=== PATIENT | female | born 1980 | race Caucasian/White ===

== ENCOUNTER 2025-08-18 21:53 | Observation (INO) ==
--- NOTE | 2025-08-18 22:01 | Emergency Department Note ---
Impression & Plan Kidney stone Admission ED Provider Note HPI: History obtained from patient. The patient is a 45-year-old female who presents the emergency department with chief complaint of right flank pain from a kidney stone. Patient states she was at the [facility] ER last night and was diagnosed with a kidney stone. She states she has had pain in the right flank. Patient states she was told the kidney stone was 5 mm but she is unsure of the location of the stone. Patient states that today she had some worsening pain as well as nausea and therefore came to this ER to be assessed. On arrival here to the ED the patient is hemodynamically stable, she otherwise appears to be in no acute distress. ROS: - Per HPI Differential Diagnosis: Kidney stone, pyelonephritis, urinary tract infection, sepsis, amongst other potential pathologies. *Outpatient medications and allergy history reviewed. PE: General: Alert HEENT: Normocephalic, trachea midline Eyes: Extraocular eye movement is intact, no scleral erythema Pulmonary: Clear to auscultation bilaterally, no wheezing Cardio: Regular rate and rhythm GI: Abdomen is soft to palpation : No suprapubic tenderness, mild right flank tenderness to palpation MSK: No evidence of trauma or malformation of the extremities, no edema Skin: No evidence of rash Neuro: Alert, no focal deficits Psychiatric: Cooperative INDEPENDENT INTERPRETATIONS: case monitor: (As interpreted by myself): - An order was placed for continuous cardiac monitoring - Patient was noted to be in sinus rhythm with a rate of 80 Interventions provided in ED: - IV morphine, IV Zofran, IV Toradol, IV ceftriaxone, IV fluid bolus Medical Decision Making: IV was established and lab work obtained, patient was placed on engine monitor. Lab work shows a leukocytosis of 17.74, hemoglobin is normal, platelet count is normal, CMP shows a mild elevation in the patient's creatinine to 1.24, otherwise no critical findings are noted. Urinalysis shows evidence of contamination with greater than 20 epithelial cells, 1+ leukocyte esterase and urine nitrate positive, will send for culture. Given that the patient also has a leukocytosis blood cultures were ordered and the patient was given a dose of IV ceftriaxone. CT imaging of the abdomen pelvis was obtained, there is evidence of an obstruction at the right ureterovesicular junction with resulting hydroureteronephrosis. Patient required multiple doses of pain medicine here in the ED, given her lab workup and imaging findings I did discuss admission versus discharge. Patient stated her preference for admission which I think is reasonable given concern for potential infection and intractable pain from her kidney stone. Urology service was consulted and the case was discussed with Rudolph Brennan PA-C. Patient will be admitted to the hospitalist service, case was discussed with the on-call hospitalist for [facility] [place], Dr. Braden. Patient was placed for admission in stable condition. Patient remained otherwise hemodynamically stable while under my service here in the ED, she does not appear to be septic. Consultants/Discussions held with other healthcare providers: - Urology, Dr. Becker/Rudolph Brennan PA-C - Hospitalist, Dr. Braden Disposition discussion held by myself with: - Patient Diagnosis: 1. Kidney stone, acute, right-sided, with intractable pain 2. Urinary tract infection, acute 3. Elevated creatinine, acute, mild Disposition: Admission Alireza Mejia DO Emergency Medicine Past Med/Surg History Problem List (Updated 08/19/25 @ 03:04 by Rudolph Brennan PA-C) Nephrolithiasis Social History Smoking Status: Never smoker Preferred Language: Wolof Feels Safe at Home: Yes Allergies Allergies Allergy/AdvReac Type Severity Reaction Status Date / Time No Known Allergies Allergy Verified 08/18/25 23:37 Home Meds Home Medications Medication Instructions Recorded Confirmed fluoxetine 20 mg capsule (Prozac) 20 mg PO DAILY 08/18/25 08/18/25 topiramate 50 mg tablet 50 mg PO BID 08/18/25 08/18/25 Results & Data (ED) Vital Signs Vital Signs - 24 hr 08/18/25 21:56 08/18/25 22:22 08/18/25 22:27 Temperature 36.5 C Temperature Source Temporal Artery Scan Pulse Rate 84 76 Pulse Rate [Apical] 74 Respiratory Rate 18 20 12 Respiratory Effort / Characteristics Non-Labored Spontaneous Non-Labored Spontaneous Respiratory Depth Normal Normal Respiratory Pattern Regular Blood Pressure 152/91 H Blood Pressure [Right Arm] 138/91 Blood Pressure Mean 111 Blood Pressure Mean [Right Arm] 106 Pulse Oximetry 96 96 94 Oxygen Delivery Method Room Air Room Air Room Air Sepsis Recent Fever Within 48 Hours No Sepsis New/Unexplained Change in Mental Status N/A Sepsis Action Taken by Nursing No Action Required 08/18/25 23:18 08/19/25 00:08 08/19/25 01:21 Temperature Temperature Source Pulse Rate 77 Pulse Rate [Apical] 78 72 Respiratory Rate 14 19 15 Respiratory Effort / Characteristics Non-Labored Spontaneous Respiratory Depth Normal Respiratory Pattern Regular Blood Pressure 155/98 H Blood Pressure [Right Arm] 140/94 117/77 Blood Pressure Mean 117 Blood Pressure Mean [Right Arm] 109 90 Pulse Oximetry 94 92 93 Oxygen Delivery Method Room Air Room Air Sepsis Recent Fever Within 48 Hours Sepsis New/Unexplained Change in Mental Status Sepsis Action Taken by Nursing 08/19/25 02:14 Temperature Temperature Source Pulse Rate Pulse Rate [Apical] 80 Respiratory Rate 12 Respiratory Effort / Characteristics Non-Labored Spontaneous Respiratory Depth Normal Respiratory Pattern Regular Blood Pressure Blood Pressure [Right Arm] 141/96 H Blood Pressure Mean Blood Pressure Mean [Right Arm] 111 Pulse Oximetry 95 Oxygen Delivery Method Room Air Sepsis Recent Fever Within 48 Hours Sepsis New/Unexplained Change in Mental Status Sepsis Action Taken by Nursing Laboratory Data 08/18/25 Unknown 08/18/25 Unknown Lab Results 08/18/25 Range/Units Unknown WBC 17.74 H (4.8-10.8) K/ul RBC 3.98 L (4.20-5.40) M/uL Hgb 12.3 (12.0-16.0) g/dl Hct 37.4 (37.0-47.0) % MCV 94.0 (80.0-100.0) fL MCH 30.9 (25.0-34.0) pg MCHC 32.9 (32.0-36.0) g/dL RDW Std Deviation 45.0 (36.4-46.3) fL RDW Coeff of [place] 13.0 (11.5-14.5) % Plt Count 287 (130-400) K/uL MPV 9.5 (9.4-12.4) fL Immature Gran % (Auto) 0.5 % Neut % (Auto) 87.7 % Lymph % (Auto) 6.8 % [place] % (Auto) 4.0 % Eos % (Auto) 0.5 % Baso % (Auto) 0.5 % Neut # (Auto) 15.57 H (1.40-6.50) K/uL Lymph # (Auto) 1.20 (1.20-3.40) K/uL [place] # (Auto) 0.71 H (0.11-0.59) K/uL Eos # (Auto) 0.09 (0.00-0.50) K/uL Baso # (Auto) 0.09 (0.00-0.20) K/uL Immature Gran # (Auto) 0.08 (0.01-0.20) K/uL PT 10.1 (9.0-12.0) Seconds INR 1.0 (0.9-1.1) Sodium 140 (136-145) mmol/L Potassium 3.3 L (3.5-5.1) mmol/L Chloride 109 H (98-107) mmol/L Carbon Dioxide 22 (21-32) mmol/L Anion Gap 9 (3-11) BUN 14 (6-23) mg/dl Creatinine 1.24 H (0.6-1.2) mg/dl Est Cr Clr Drug Dosing 58.9 ml/min eGFR 54.35 BUN/Creatinine Ratio 11.3 (10-20) Glucose 133 H (70-99(Fasting)) mg/dl Calcium 8.7 (8.6-10.3) mg/dl Total Bilirubin 0.4 (0.2-1.0) mg/dl AST 23 (13-39) U/L ALT 41 (7-52) U/L Alkaline Phosphatase 75 (34-104) U/L Total Protein 7.2 (6.0-8.3) gm/dl Albumin 3.9 (3.4-5.0) gm/dl Globulin 3.3 (2.5-4.0) gm/dl Albumin/Globulin Ratio 1.2 (0.9-2) Lipase 12 (11-82) U/L Urine Color [place] Urine Appearance Cloudy A (Clear) Urine pH 5.0 (4.5-7.5) Ur Specific [place] 1.024 (1.000-1.030) Urine Protein 1+ H (Negative) Urine Glucose (UA) Negative (Negative) Urine Ketones Trace H (Negative) Urine Blood Negative (Negative) Urine Nitrite Positive A (Negative) Urine Bilirubin 1+ H (Negative) Urine Urobilinogen Negative (Negative) Ur Leukocyte Esterase 1+ H (Negative) Urine WBC (Auto) 0-5 (0-5) /hpf Urine RBC (Auto) 3-5 H (0-2) /hpf U Hyaline Cast (Auto) 0-2 (0-2) /lpf U Epithel Cells (Auto) >20 H (0-2) /hpf Urine Bacteria (Auto) 2+ H (None Seen) Urine Comment Administered Medications Discontinued Medications Sodium Chloride (Nss) 1,000 mls @ 999 mls/hr IV .[id number] ONE Stop: 08/18/25 23:07 Last Infusion: 08/18/25 23:42 Dose: Infused Documented By: maia Admin: 08/18/25 22:28 Dose: 999 mls/hr Documented By: maia Ceftriaxone Sodium (Rocephin) 2,000 mg in 50 mls @ 100 mls/hr IV NOW STA Stop: 08/19/25 00:47 Last Infusion: 08/19/25 02:00 Dose: Infused Documented By: maia Admin: 08/19/25 01:03 Dose: 100 mls/hr Documented By: maia Ketorolac Tromethamine (Ketorolac Tromethamine 15 Mg/Ml Vial) 15 mg IV NOW ONE Stop: 08/18/25 22:08 Last Admin: 08/18/25 22:27 Dose: 15 mg Documented By: maia Ketorolac Tromethamine (Ketorolac Tromethamine 15 Mg/Ml Vial) 15 mg IV NOW ONE Stop: 08/18/25 23:27 Last Admin: 08/18/25 23:43 Dose: Not Given Documented By: maia Morphine Sulfate (Morphine Sulfate 4 Mg/Ml 1 Ml Carp\Vial) 4 mg IV NOW STA Stop: 08/18/25 22:08 Last Admin: 08/18/25 22:28 Dose: 4 mg Documented By: maia Morphine Sulfate (Morphine Sulfate 4 Mg/Ml 1 Ml Carp\Vial) 4 mg IV NOW STA Stop: 08/19/25 02:15 Last Admin: 08/19/25 02:28 Dose: 4 mg Documented By: maia Ondansetron HCl (Ondansetron Inj 2 Mg/Ml 2 Ml Vial) 4 mg IV NOW STA Stop: 08/18/25 22:08 Last Admin: 08/18/25 22:27 Dose: 4 mg Documented By: maia Ondansetron HCl (Ondansetron Inj 2 Mg/Ml 2 Ml Vial) 4 mg IV NOW STA Stop: 08/18/25 23:27 Last Admin: 08/18/25 23:36 Dose: 4 mg Documented By: maia Imaging Data Radiologist's Impression: Abdomen/Pelvis CT 08/19/25 00:21 EXAM: CT abd pelvis wo con CLINICAL HISTORY: R flank pain TECHNIQUE: Contiguous axial images were obtained from the level of the diaphragm to the pubic symphysis without intravenous or oral contrast. Coronal and sagittal reconstructions were likewise performed and are included to increase the sensitivity for detecting clinically relevant pathology. The CT scan was performed according to ALARA (as low as reasonably achievable) principles. COMPARISON: None FINDINGS: The visualized lung bases are clear. Evaluation of the abdominal and pelvic visceral organs is limited without intravenous contrast. The unenhanced liver, spleen, pancreas, and adrenal glands are grossly unremarkable. The gallbladder is present. The kidneys are normal in size and attenuation. A right vesico-ureteric junction calculus measuring 2.9 mm (HU ~440) is causing mild hydroureteronephrosis and perinephric fat stranding. Multiple 2-3 mm calculi are seen in all pole calyces of the right kidney. Two 2 mm calculi are present at the lower pole of the left kidney. A cortical cyst measuring 1.5 x 1.2 cm is seen at the upper pole of the right kidney. The urinary bladder is normal in contour. The pelvic viscera are grossly unremarkable. No adenopathy or fluid collections are seen. There is no evidence of focal or diffuse bowel wall thickening or evidence of bowel obstruction. The appendix is visualized in the right lower quadrant and appears within normal limits. The aorta is normal in caliber. No aggressive-appearing osseous lesions are identified. IMPRESSION: 1. Right vesico-ureteric junction calculus causing mild hydroureteronephrosis and perinephric fat stranding. 2. Non-obstructing bilateral nephrolithiasis. 3. Right renal cortical cyst. Electronically signed by Jose Earl 08-19-2025 02:48 AM Discharge Plan Visit Data Chief Complaint: Kidney Stone Stated Complaint: KIDNEY STONES SINCE FRIDAY NOON ED Provider: Alireza Mejia Discharge Problem: Kidney stone Patient Disposition: Admitted As Inpatient Condition: Fair Forms Stand Alone Forms: My [employer] Prescriptions Prescriptions: No Action fluoxetine [Prozac] 20 mg Capsule 20 mg PO DAILY topiramate 50 mg Tablet 50 mg PO BID Referrals Referrals: PCP,NO [Primary Care Provider] -
[2025-08-18] MEDS: KETOROLAC TROMETHAMINE 15 MG/ML VIAL IV ONE ×2 (22:27→23:43)
[2025-08-18] MEDS: ONDANSETRON INJ 2 MG/ML 2 ML VIAL IV STA ×2 (22:27→23:36)
[2025-08-18] MEDS: SODIUM CHLORIDE 0.9% 1,000 ML IV ONE (22:28)
[2025-08-18] MEDS: MoRPHine SULFATE 4 MG/ML 1 ML CARP\\VIAL IV STA (22:28)
[2025-08-18 22:30] LABS: Hematocrit (blood only) 37.4 % (37.0-47.0); Hemoglobin 12.3 g/dl (12.0-16.0); Immature Granulocytes # (auto) 0.08 K/uL (0.01-0.20); Immature Granulocytes % (auto) 0.5 %; Mean Corpuscular Hemoglobin 30.9 pg (25.0-34.0); Mean Corpuscular Volume 94.0 fL (80.0-100.0); Platelet Count 287 K/uL (130-400); RDW Standard Deviation 45.0 fL (36.4-46.3); Red Blood Count 3.98 M/uL (4.20-5.40); White Blood Count 17.74 K/ul (4.8-10.8)
[2025-08-18 22:50] LABS: Alanine Aminotransferase 41.0 U/L (7-52); Albumin Globulin Ratio 1.2 (0.9-2); Albumin Level 3.9 gm/dl (3.4-5.0); Alkaline Phosphatase 75.0 U/L (34-104); Anion Gap 9.0 (3-11); Bilirubin,Total 0.4 mg/dl (0.2-1.0); Blood Urea Nitrogen 14.0 mg/dl (6-23); Calcium 8.7 mg/dl (8.6-10.3); Carbon Dioxide 22.0 mmol/L (21-32); Chloride 109.0 mmol/L (98-107); Creatinine Clr Calc Pharmacy 58.9 ml/min; Globulin 3.3 gm/dl (2.5-4.0); Glucose 133.0 mg/dl (70-99(Fasting)); Lipase 12.0 U/L (11-82); Potassium 3.3 mmol/L (3.5-5.1); Sodium 140.0 mmol/L (136-145); Total Protein 7.2 gm/dl (6.0-8.3)
[2025-08-18 23:45] LABS: Bacteria Urine Automated 2+ (None Seen); Cast Urine Automated 0-2 /lpf (0-2); Epithelial Cell Urine Auto >20 /hpf (0-2); WBC Urine Automated 0-5 /hpf (0-5)
[2025-08-18 23:50] LABS: INR 1.0 (0.9-1.1); Prothrombin Time 10.1 Seconds (9.0-12.0)
[2025-08-19 00:06] LABS: Appearance Urine Cloudy (Clear)
[2025-08-19 00:16] LABS: Glucose Urine UA Negative (Negative)
[2025-08-19] MEDS: cefTRIAXone SODIUM 2,000 MG/50 ML BAG IV STA (01:03)
[2025-08-19] MEDS: MoRPHine SULFATE 4 MG/ML 1 ML CARP\\VIAL IV STA (02:28)
--- NOTE | 2025-08-19 02:49 | CT Scan Report ---
EXAM: CT abd pelvis wo con CLINICAL HISTORY: R flank pain TECHNIQUE: Contiguous axial images were obtained from the level of the diaphragm to the pubic symphysis without intravenous or oral contrast. Coronal and sagittal reconstructions were likewise performed and are included to increase the sensitivity for detecting clinically relevant pathology. The CT scan was performed according to ALARA (as low as reasonably achievable) principles. COMPARISON: None FINDINGS: The visualized lung bases are clear. Evaluation of the abdominal and pelvic visceral organs is limited without intravenous contrast. The unenhanced liver, spleen, pancreas, and adrenal glands are grossly unremarkable. The gallbladder is present. The kidneys are normal in size and attenuation. A right vesico-ureteric junction calculus measuring 2.9 mm (HU ~440) is causing mild hydroureteronephrosis and perinephric fat stranding. Multiple 2-3 mm calculi are seen in all pole calyces of the right kidney. Two 2 mm calculi are present at the lower pole of the left kidney. A cortical cyst measuring 1.5 x 1.2 cm is seen at the upper pole of the right kidney. The urinary bladder is normal in contour. The pelvic viscera are grossly unremarkable. No adenopathy or fluid collections are seen. There is no evidence of focal or diffuse bowel wall thickening or evidence of bowel obstruction. The appendix is visualized in the right lower quadrant and appears within normal limits. The aorta is normal in caliber. No aggressive-appearing osseous lesions are identified. IMPRESSION: 1. Right vesico-ureteric junction calculus causing mild hydroureteronephrosis and perinephric fat stranding. 2. Non-obstructing bilateral nephrolithiasis. 3. Right renal cortical cyst. Electronically signed by Jose Earl 08-19-2025 02:48 AM
--- NOTE | 2025-08-19 03:03 | History & Physical Report ---
Date of Service August 19, 2025 Assessment & Plan (1) Complicated UTI (urinary tract infection): Plan: Assessment and plan below following discussion of case with ED provider and reviewing patient history/pertinent normal/abnormal diagnostic test results. Complicated UTI ARF secondary to obstructive uropathy No sepsis for now Hypertension, elevated secondary to illness Hyperglycemia rule out DM Hypokalemia secondary to decreased p.o. intake mood disorder,, stable on regimen Admit to MedSurg Urine CS, Ceftriaxone Flomax trial Strain urine Urology consult re: obstructive kidney stone N.p.o. status in anticipation of procedure Monitor creatinine response to IVF Amlodipine if with persistent BP elevation Replace potassium Check hemoglobin A1c DVT prophylaxis. SCDs Full code Text document was generated using [employer] voice recognition software. It may contain grammatical or spelling errors. Kindly contact undersigned for clarification of any documentation item in question. History of Present Illness Chief Complaint: Kidney stone Primary Care Provider: Dr. Demarco History obtained from patient and records. Medical history significant for borderline hypertension, urolithiasis, mood disorder. 2 days ago, patient noted achy right flank pain reminiscent of kidney stone attack associated with dysuria symptoms. No hematuria, no fever, no chills. Patient consulted [facility] ER. Patient told she had small obstructing kidney stone on the right. Patient given Flomax at the ER. Patient discharged on Vicodin and Pyridium course. Patient instructed to go to [facility] if with worsening pain due to lack of urology services at [facility] as per patient account. Worsening pain yesterday associated with nausea, fever, chills. Poor appetite. Patient denies chest pain, SOB, headache symptoms. IV ceftriaxone administered at the ER. Highest SBP of 180 documented at the ER. Medical History as above Surgical History : BTL Family History : Heart disease Personal/Social history : Non-smoker, no EtOH intake, traveling repair accountant Allergies Allergy/AdvReac Type Severity Reaction Status Date / Time No Known Allergies Allergy Verified 08/18/25 23:37 Home Medications Medication Instructions Recorded Confirmed Type fluoxetine 20 mg capsule (Prozac) 20 mg PO DAILY 08/18/25 08/18/25 History topiramate 50 mg tablet 50 mg PO BID 08/18/25 08/18/25 History Past Med/Surg History Problem List (Updated 08/19/25 @ 05:52 by Brayan Braden MD) Complicated UTI (urinary tract infection) Nephrolithiasis Social History Smoking Status: Never smoker Hx Alcohol Use: No Hx Substance Use: No Preferred Language: Vietnamese Communication Ability: Effective Consulting Nurse Required: No Beliefs That Will Affect Care: None Current Living Situation: Spouse and Family Feels Safe at Home: Yes Safety Concerns: Feels Safe At This Time Review of Systems Review of Systems: As per HPI, all other systems reviewed and negative Physical Exam Physical Exam: GENERAL: Slightly uncomfortable, obese, no respiratory distress SKIN: Normal color, warm HEENT: [place] palpebral conjunctivae, no ptosis, dry buccal mucosa NECK : Supple, no tenderness CHEST : CTA, no tenderness HEART : RRR, no obvious murmurs ABDOMEN: Some distention, right flank tenderness EXTREMITIES : Minimal LE swelling without LE tenderness, palpable pulses, no other conspicuous deformities noted NEUROLOGIC : Coherent, no facial asymmetry, no other gross focality Results & Data Results & Data Vital Signs (Past 12 Hours) Vital Signs Temp Pulse Pulse Resp BP BP Pulse Ox 08/19/25 02:14 80 12 141/96 H 95 08/19/25 01:21 77 15 155/98 H 93 08/19/25 00:08 72 19 117/77 92 08/18/25 23:18 78 14 140/94 94 08/18/25 22:27 74 12 138/91 94 08/18/25 22:22 76 20 96 08/18/25 21:56 36.5 C 84 18 152/91 H 96 O2 Del Method 08/19/25 02:14 Room Air 08/19/25 01:21 08/19/25 00:08 Room Air 08/18/25 23:18 Room Air 08/18/25 22:27 Room Air 08/18/25 22:22 Room Air 08/18/25 21:56 Room Air Laboratory Results Laboratory Results WBC 17.74 K/ul (4.8-10.8) H 08/18/25 Unknown RBC 3.98 M/uL (4.20-5.40) L 08/18/25 Unknown Hgb 12.3 g/dl (12.0-16.0) 08/18/25 Unknown Hct 37.4 % (37.0-47.0) 08/18/25 Unknown MCV 94.0 fL (80.0-100.0) 08/18/25 Unknown MCH 30.9 pg (25.0-34.0) 08/18/25 Unknown MCHC 32.9 g/dL (32.0-36.0) 08/18/25 Unknown RDW Std Deviation 45.0 fL (36.4-46.3) 08/18/25 Unknown RDW Coeff of Mala 13.0 % (11.5-14.5) 08/18/25 Unknown Plt Count 287 K/uL (130-400) 08/18/25 Unknown MPV 9.5 fL (9.4-12.4) 08/18/25 Unknown Immature Gran % (Auto) 0.5 % 08/18/25 Unknown Neut % (Auto) 87.7 % 08/18/25 Unknown Lymph % (Auto) 6.8 % 08/18/25 Unknown [place] % (Auto) 4.0 % 08/18/25 Unknown Eos % (Auto) 0.5 % 08/18/25 Unknown Baso % (Auto) 0.5 % 08/18/25 Unknown Neut # (Auto) 15.57 K/uL (1.40-6.50) H 08/18/25 Unknown Lymph # (Auto) 1.20 K/uL (1.20-3.40) 08/18/25 Unknown [place] # (Auto) 0.71 K/uL (0.11-0.59) H 08/18/25 Unknown Eos # (Auto) 0.09 K/uL (0.00-0.50) 08/18/25 Unknown Baso # (Auto) 0.09 K/uL (0.00-0.20) 08/18/25 Unknown Immature Gran # (Auto) 0.08 K/uL (0.01-0.20) 08/18/25 Unknown PT 10.1 Seconds (9.0-12.0) 08/18/25 Unknown INR 1.0 (0.9-1.1) 08/18/25 Unknown Sodium 140 mmol/L (136-145) 08/18/25 Unknown Potassium 3.3 mmol/L (3.5-5.1) L 08/18/25 Unknown Chloride 109 mmol/L (98-107) H 08/18/25 Unknown Carbon Dioxide 22 mmol/L (21-32) 08/18/25 Unknown Anion Gap 9 (3-11) 08/18/25 Unknown BUN 14 mg/dl (6-23) 08/18/25 Unknown Creatinine 1.24 mg/dl (0.6-1.2) H 08/18/25 Unknown Est Cr Clr Drug Dosing 58.9 ml/min 08/18/25 Unknown eGFR 54.35 08/18/25 Unknown BUN/Creatinine Ratio 11.3 (10-20) 08/18/25 Unknown Glucose 133 mg/dl (70-99(Fasting)) H 08/18/25 Unknown Calcium 8.7 mg/dl (8.6-10.3) 08/18/25 Unknown Total Bilirubin 0.4 mg/dl (0.2-1.0) 08/18/25 Unknown AST 23 U/L (13-39) 08/18/25 Unknown ALT 41 U/L (7-52) 08/18/25 Unknown Alkaline Phosphatase 75 U/L (34-104) 08/18/25 Unknown Total Protein 7.2 gm/dl (6.0-8.3) 08/18/25 Unknown Albumin 3.9 gm/dl (3.4-5.0) 08/18/25 Unknown Globulin 3.3 gm/dl (2.5-4.0) 08/18/25 Unknown Albumin/Globulin Ratio 1.2 (0.9-2) 08/18/25 Unknown Lipase 12 U/L (11-82) 08/18/25 Unknown Urine Color [place] 08/18/25 Unknown Urine Appearance Cloudy (Clear) A 08/18/25 Unknown Urine pH 5.0 (4.5-7.5) 08/18/25 Unknown Ur Specific [place] 1.024 (1.000-1.030) 08/18/25 Unknown Urine Protein 1+ (Negative) H 08/18/25 Unknown Urine Glucose (UA) Negative (Negative) 08/18/25 Unknown Urine Ketones Trace (Negative) H 08/18/25 Unknown Urine Blood Negative (Negative) 08/18/25 Unknown Urine Nitrite Positive (Negative) A 08/18/25 Unknown Urine Bilirubin 1+ (Negative) H 08/18/25 Unknown Urine Urobilinogen Negative (Negative) 08/18/25 Unknown Ur Leukocyte Esterase 1+ (Negative) H 08/18/25 Unknown Urine WBC (Auto) 0-5 /hpf (0-5) 08/18/25 Unknown Urine RBC (Auto) 3-5 /hpf (0-2) H 08/18/25 Unknown U Hyaline Cast (Auto) 0-2 /lpf (0-2) 08/18/25 Unknown U Epithel Cells (Auto) >20 /hpf (0-2) H 08/18/25 Unknown Urine Bacteria (Auto) 2+ (None Seen) H 08/18/25 Unknown Urine Comment 08/18/25 Unknown Impressions Abdomen/Pelvis CT 08/19/25 00:21 EXAM: CT abd pelvis wo con CLINICAL HISTORY: R flank pain TECHNIQUE: Contiguous axial images were obtained from the level of the diaphragm to the pubic symphysis without intravenous or oral contrast. Coronal and sagittal reconstructions were likewise performed and are included to increase the sensitivity for detecting clinically relevant pathology. The CT scan was performed according to ALARA (as low as reasonably achievable) principles. COMPARISON: None FINDINGS: The visualized lung bases are clear. Evaluation of the abdominal and pelvic visceral organs is limited without intravenous contrast. The unenhanced liver, spleen, pancreas, and adrenal glands are grossly unremarkable. The gallbladder is present. The kidneys are normal in size and attenuation. A right vesico-ureteric junction calculus measuring 2.9 mm (HU ~440) is causing mild hydroureteronephrosis and perinephric fat stranding. Multiple 2-3 mm calculi are seen in all pole calyces of the right kidney. Two 2 mm calculi are present at the lower pole of the left kidney. A cortical cyst measuring 1.5 x 1.2 cm is seen at the upper pole of the right kidney. The urinary bladder is normal in contour. The pelvic viscera are grossly unremarkable. No adenopathy or fluid collections are seen. There is no evidence of focal or diffuse bowel wall thickening or evidence of bowel obstruction. The appendix is visualized in the right lower quadrant and appears within normal limits. The aorta is normal in caliber. No aggressive-appearing osseous lesions are identified. IMPRESSION: 1. Right vesico-ureteric junction calculus causing mild hydroureteronephrosis and perinephric fat stranding. 2. Non-obstructing bilateral nephrolithiasis. 3. Right renal cortical cyst. Electronically signed by Jose Earl 08-19-2025 02:48 AM Diagnostic Findings EKG as per my interpretation : Rate 70, NSR, normal axis, nonspecific T wave abnormalities
--- NOTE | 2025-08-19 03:09 | Urology Consultation ---
<Statement entered by Ney Blake MD - 08/19/25 07:31> 45 year old female with 3mm stone at the right UVJ with urinalysis suspicious for underlying infection. Agree with urine culture and antibiotics, she will likely need cystoscopy and right ureteral stent placement. Please keep NPO Date of Consultation August 19, 2025 Assessment & Plan (1) Nephrolithiasis: I discussed with the treating emergency room physician the patient is being admitted on the medical service. From a urologic perspective we recommend the following: Provide analgesics Provide antiemetics Hydrate the patient with IV fluids Follow serial labs Due to concern for underlying urinary tract infection she has been placed on antibiotics in form of Rocephin which should continue. Appropriate cultures have been sent and should be followed, tailoring antibiotics based on these results Provide Flomax for expulsive therapythe first dose has been ordered by the medical service Keep patient n.p.o. The patient is noted to have a kidney stone at the vesicoureteral junction and is approximately 3 mm so hopefully with the above interventions the stone will pass on its own If the patient is unable to pass the stone and continues to have significant pain, coupled with the fact that she has a likely underlying urinary tract infection she may require cystoscopic intervention but the final determination for this will be made by our dayshift team upon evaluation the morning of At the time of my interview the patient was noted to be normotensive without tachycardia or fever and was nontoxic-appearing therefore I feel a trial of conservative management is warranted Additional recommendations were forthcoming based on her clinical course as it unfolds History of Present Illness Reason for Consultation: Nephrolithiasis History of Present Illness Is a 45-year-old female who presented to the emergency department secondary to 3 days of right-sided flank pain. She says that the pain radiates to the front of her abdomen. She has had associated nausea and vomiting. She has had some intermittent shakes and chills but denies any fevers. She says that she is urinating without difficulty and is unsure if she has had any blood-tinged urine (she notes that this was difficult to ascertain because she is not was taking Pyridium). She does report dysuria as well as urinary frequency. She says that she did have a prior kidney stone several years ago which she was able to successfully pass without the need for any procedure or intervention. She does not have a urologist that she follows with regularly. Since arrival to hospital patient has had labs and imaging which I independently reviewed. CT scan of the abdomen pelvis was performed. This showed the patient had a kidney stone at the right vesicoureteral junction measuring approximately 2.9 mm causing mild hydro nephrosis. Labs included CBC white blood cell count was elevated 17.7. Hemoglobin and hematocrit as well as a platelet count were normal. Coagulation studies were normal. Chemistry profile showed sodium was normal with a potassium of 3.3. BUN was normal with a creatinine with a slight elevation of 1.24. Urinalysis showed cloudy urine which was positive for nitrites as well as 1+ leukocyte esterase. Pyuria was not present but the patient did have 2+ bacteria. At the time of my interview the patient was resting comfortably in bed but was in no distress. The patient reports that she does not have any medication allergies Concerning past medical history she is treated for migraine headaches, as well as anxiety/depression Concerning past surgical history she has had a tubal ligation Concerning social history she does not smoke Allergies Allergy/AdvReac Type Severity Reaction Status Date / Time No Known Allergies Allergy Verified 08/18/25 23:37 Home Medications Medication Instructions Recorded Confirmed Type fluoxetine 20 mg capsule (Prozac) 20 mg PO DAILY 08/18/25 08/18/25 History topiramate 50 mg tablet 50 mg PO BID 08/18/25 08/18/25 History Patient History Social History Smoking Status: Never smoker Preferred Language: Yakut Feels Safe at Home: Yes Review of Systems Review of Systems: All systems reviewed & are unremarkable except as noted in HPI & below Physical Exam Constitutional: WD/WN, vitals as above Eyes: no conjunctival abnormality ENMT: Ears: no hearing impairment and no external ear abnormality Mouth: no oropharynx abnormality Neck: trachea midline Respiratory: normal respiratory effort; no respiratory distress and no labored breathing Cardiovascular: Rate/Rhythm: regular rate and regular rhythm Vessels: dorsalis pedis pulses present Gastrointestinal (Abdomen): Abdomen is soft without distention, rigidity, or signs of peritonitis (no rebound tenderness or guarding) Musculoskeletal: No calf tenderness Skin: no rashes Neurologic: moves all extremities Genitourinary: No CVA tenderness with percussion on the left. Only slight CVA tenderness with percussion on the right Results & Data Vital Signs (Past 12 Hours) Vital Signs Temp Pulse Pulse Resp BP BP Pulse Ox 08/19/25 02:14 80 12 141/96 H 95 08/19/25 01:21 77 15 155/98 H 93 08/19/25 00:08 72 19 117/77 92 08/18/25 23:18 78 14 140/94 94 08/18/25 22:27 74 12 138/91 94 08/18/25 22:22 76 20 96 08/18/25 21:56 36.5 C 84 18 152/91 H 96 O2 Del Method 08/19/25 02:14 Room Air 08/19/25 01:21 08/19/25 00:08 Room Air 08/18/25 23:18 Room Air 08/18/25 22:27 Room Air 08/18/25 22:22 Room Air 08/18/25 21:56 Room Air PG Care Time/CCT Total # of Minutes Spent Total Time Spent with Patient: Total time spent is greater than 50% in coordination of care (as documented) at patient's floor/unit and/or counseling patient: Coding Level of Care Code 13091 OFFICE CONSULT LVL Diagnoses Nephrolithiasis N20.0
[2025-08-19 03:27] LABS: Magnesium 1.8 mg/dl (1.7-2.4)
[2025-08-19] MEDS ORDERED: LORazepam 0.5 MG TAB PO PRN (03:30)
[2025-08-19] MEDS: TAMSULOSIN HCL 0.4 MG CAP PO ONE (04:00)
[2025-08-19] MEDS: POTASSIUM CHLORIDE CRTAB 20 MEQ TABCR PO STA (04:00)
[2025-08-19] MEDS: PROMETHAZINE 12.5 MG/50.5 ML BAG IV PRN (04:19)
[2025-08-19] MEDS: HYDROmorphone INJ 0.5 MG/0.5 ML SYR IV PRN (04:19)
[2025-08-19] MEDS: POTASSIUM CHLORIDE 20 MEQ in LACTATED RINGER'S 1,000 ML IV SCH (04:37)
[2025-08-19 08:11] LABS: Hematocrit (blood only) 33.0 % (37.0-47.0); Hemoglobin 10.9 g/dl (12.0-16.0); Immature Granulocytes # (auto) 0.05 K/uL (0.01-0.20); Immature Granulocytes % (auto) 0.3 %; Mean Corpuscular Hemoglobin 31.0 pg (25.0-34.0); Mean Corpuscular Volume 93.8 fL (80.0-100.0); Platelet Count 254 K/uL (130-400); RDW Standard Deviation 44.8 fL (36.4-46.3); Red Blood Count 3.52 M/uL (4.20-5.40); White Blood Count 15.30 K/ul (4.8-10.8)
[2025-08-19 08:29] LABS: Anion Gap 5.0 (3-11); Blood Urea Nitrogen 12.0 mg/dl (6-23); Calcium 8.1 mg/dl (8.6-10.3); Carbon Dioxide 25.0 mmol/L (21-32); Chloride 111.0 mmol/L (98-107); Creatinine Clr Calc Pharmacy 57.1 ml/min; Glucose 103.0 mg/dl (70-99(Fasting)); Potassium 3.8 mmol/L (3.5-5.1); Sodium 141.0 mmol/L (136-145)
[2025-08-19 09:11] LABS: Hemoglobin A1C 5.3 % (4.5-5.6)
[2025-08-19] MEDS: TOPIRAMATE 50 MG TAB PO SCH (09:19)
--- NOTE | 2025-08-19 10:52 | Electrocardiogram Report ---
Test Reason : Blood Pressure : */* mmHG Vent. Rate : 72 BPM Atrial Rate : 72 BPM P-R Int : 148 ms QRS Dur : 90 ms QT Int : 544 ms P-R-T Axes : 51 34 61 degrees QTcB Int : 595 ms Normal sinus rhythm Low voltage QRS Nonspecific T wave abnormality Abnormal ECG No previous ECGs available Confirmed by Hernan Patterson ([id number]) on 08/19/2025 10:52:18 AM Referred By: REFERRED SELF Confirmed By: Hernan Patterson
--- NOTE | 2025-08-19 11:24 | Urology Progress Note ---
Date of Service August 19, 2025 Assessment & Plan (1) Complicated UTI (urinary tract infection): (2) Right ureteral stone: Plan 45yo female admitted with an obstructing 3mm right UVJ stone and suspected UTI Afebrile and hemodynamically stable Labs show WBCs 15.3, creatinine 1.28 Urine and blood cultures pending On ceftriaxone We discussed acute stone management with cystoscopy and stent placement. Ureteral stents were discussed as well as postoperative issues and pain m anagement. She is aware a second procedure will be needed for stone treatment after the infection has been treated appropriately. Risks and benefits were discussed. All questions were answered. Will proceed to the OR today for cystoscopy, right retrograde pyelogram, right ureteral stent placement. Risks and benefits to be reviewed with patient by Dr. Maldonado. Keep NPO. She is covered with IV ceftriaxone. Urology to follow. Admission and Anticipated Discharge Date Admission Date: August 19, 2025 Supervising Physician Co-Signing Physician Notes With obstructing right stone and UA suspicious for infection, will plan for right ureteral stent placement Subjective Patient seen at bedside this morning. Awake and resting in bed on arrival. No acute distress. Has been NPO. Review of Systems Constitutional: as per Subjective / HPI Genitourinary: as per Subjective / HPI Physical Exam Constitutional: no acute distress Respiratory: no respiratory distress and no labored breathing Neurologic: awake Psychiatric: A+Ox3, euthymic affect Results & Data Vital Signs (Past 12 Hours) Vital Signs Pulse Pulse Resp BP BP Pulse Ox O2 Del Method 08/19/25 07:43 74 20 116/68 97 Room Air 08/19/25 07:20 72 08/19/25 05:43 78 20 108/80 96 Room Air 08/19/25 05:00 72 20 108/80 97 Room Air 08/19/25 04:21 69 13 123/84 94 08/19/25 03:35 71 08/19/25 03:30 71 15 92 08/19/25 03:09 80 13 94 08/19/25 02:48 82 15 182/118 H 93 08/19/25 02:14 80 12 141/96 H 95 Room Air 08/19/25 01:21 77 15 155/98 H 93 08/19/25 00:08 72 19 117/77 92 Room Air 08/18/25 23:18 78 14 140/94 94 Room Air PG Care Time/CCT Total # of Minutes Spent Total Time Spent with Patient: Total time spent is greater than 50% in coordination of care (as documented) at patient's floor/unit and/or counseling patient: Coding Level of Care Code None Diagnoses Complicated UTI (urinary tract infection) N39.0 Right ureteral stone N20.1
--- NOTE | 2025-08-19 12:16 | Hospitalist Progress Note ---
Date of Service August 19, 2025 Assessment & Plan (1) Complicated UTI (urinary tract infection): Plan: Complicated urinary tract infection Obstructive uropathy Acute kidney injury Right renal cyst --CT ABD:Right vesico-ureteric junction calculus causing mild hydroureteronephrosis and perinephric fat stranding. Non-obstructing bilateral nephrolithiasis. Right renal cortical cyst. --S/P Cystoscopy, right retrograde pyelogram, right ureteral stent placement by Dr. Maldonado on 08/19/2025 -- Blood cultures pending -- Urine culture pending Continue IV Rocephin Continue IV fluids, Flomax Advance diet as tolerated Appreciate urology input Hypokalemia Replace and monitor QTc prolongation Avoid QTc prolonging meds Hypertension BP elevated on presentation likely situational Started on low-dose amlodipine 2.5 mg daily Monitor blood pressure and adjust medications as needed Hyperglycemia HbA1c 5.3 Mood disorder Continue Prozac Also on topiramate Will defer to primary care physician to discontinue topiramate given risk for n ephrolithiasis DVT Px: SCDs for now CODE STATUS Full code Admission and Anticipated Discharge Date Admission Date: August 19, 2025 Subjective Patient is seen and examined at bedside Admits to have right flank/right lower quadrant abdominal discomfort Plan for ureteral stent placement today Nausea much improved Also has dysuria but denies any hematuria Discussed with urology today Denies any chest pain, dyspnea, dizziness Review of Systems Review of Systems: All systems reviewed & are unremarkable except as noted in Subjective Physical Exam Physical Exam: Physical Exam: Vitals signs as noted above General Appearance:Moderately built and nourished, no apparent distress Head: normocephalic, Atraumatic Eyes: normal inspection, EOMI Neck: supple, Trachea midline Respiratory/Chest: Normal breath sounds, CTA, No accessory muscle use Cardiovascular: S1, S2, No murmur Abdomen/GI:Soft, R flank tender, Bowel sounds present Extremities/Musculoskeletal:normal inspection, no edema Neurologic/Psych:AAOX3, grossly no focal neurological deficits Skin: normal color, warm Results & Data Results & Data Vital Signs (Past 12 Hours) Vital Signs Temp Pulse Pulse Pulse Resp BP BP 08/19/25 11:45 37.0 C 90 18 131/73 08/19/25 07:43 74 20 116/68 08/19/25 07:20 72 08/19/25 05:43 78 20 108/80 08/19/25 05:00 72 20 108/80 08/19/25 04:21 69 13 123/84 08/19/25 03:35 71 08/19/25 03:30 71 15 08/19/25 03:09 80 13 08/19/25 02:48 82 15 182/118 H 08/19/25 02:14 80 12 141/96 H 08/19/25 01:21 77 15 155/98 H Pulse Ox O2 Del Method 08/19/25 11:45 96 Room Air 08/19/25 07:43 97 Room Air 08/19/25 07:20 08/19/25 05:43 96 Room Air 08/19/25 05:00 97 Room Air 08/19/25 04:21 94 08/19/25 03:35 08/19/25 03:30 92 08/19/25 03:09 94 08/19/25 02:48 93 08/19/25 02:14 95 Room Air 08/19/25 01:21 93 Laboratory Results Short CBC 08/18/25 08/19/25 Range/Units Unknown 07:52 WBC 17.74 H 15.30 H (4.8-10.8) K/ul Hgb 12.3 10.9 L (12.0-16.0) g/dl Hct 37.4 33.0 L (37.0-47.0) % Plt Count 287 254 (130-400) K/uL BMP 08/18/25 08/19/25 Unknown 07:52 Sodium 140 141 Potassium 3.3 L 3.8 Chloride 109 H 111 H Carbon Dioxide 22 25 BUN 14 12 Creatinine 1.24 H 1.28 H Glucose 133 H 103 H Calcium 8.7 8.1 L Liver Function 08/18/25 Range/Units Unknown Total Bilirubin 0.4 (0.2-1.0) mg/dl AST 23 (13-39) U/L ALT 41 (7-52) U/L Alkaline Phosphatase 75 (34-104) U/L Albumin 3.9 (3.4-5.0) gm/dl Urine 08/18/25 Range/Units Unknown Urine Color [place] Urine Appearance Cloudy A (Clear) Urine pH 5.0 (4.5-7.5) Ur Specific [place] 1.024 (1.000-1.030) Urine Protein 1+ H (Negative) Urine Glucose (UA) Negative (Negative)
--- NOTE | 2025-08-19 12:21 | Anesthesiology Consultation ---
Date of Service August 19, 2025 Assessment & Plan Consults Requested medical & cardiac Pulmonary ASA ASA2 Proposed Anesthesia Anesthesia Type: MAC Risk / Benefits Reviewed With: PT / POA / Parent / Guardian, Accepts Plan and Informed Consent Obtained History Surgery Operation Date: 08/19/25 07:50 Proposed Procedures p Cystoscopy, Right Retrograde Pyelogram, Right Stent Placement - Elliott Maldonado MD Height/Weight Height: 5 ft 4 in Weight: 82.5 kg Allergies Allergy/AdvReac Type Severity Reaction Status Date / Time No Known Allergies Allergy Verified 08/19/25 11:48 Medications Home Medications Medication Instructions Recorded Confirmed Last Taken fluoxetine 20 mg capsule (Prozac) 20 mg PO DAILY 08/18/25 08/18/25 Unknown topiramate 50 mg tablet 50 mg PO BID 08/18/25 08/18/25 Unknown Active Medications Generic Name Dose Route Start Last Admin Trade Name Freq PRN Reason Stop Dose Admin Amlodipine Besylate 2.5 mg 08/19/25 04:15 08/19/25 04:26 Amlodipine Besylate 5 Mg Tab PO 09/18/25 04:14 Not Given QAM RAMA Fluoxetine HCl 20 mg 08/19/25 09:00 08/19/25 09:20 Fluoxetine Hcl 20 Mg Cap PO 09/18/25 08:59 20 mg DAILY RAMA Administration Hydromorphone HCl 0.5 mg 08/19/25 03:30 08/19/25 08:24 Hydromorphone Inj 0.5 Mg/0.5 Ml Syr IV 09/02/25 03:29 0.5 mg Q4H PRN Administration Pain Potassium Chloride 20 meq/ 1,010 mls @ 80 mls/hr 08/19/25 03:30 08/19/25 04:37 Lactated Ringer's IV 08/20/25 03:29 80 mls/hr .[id number] RAMA Administration Promethazine HCl 12.5 mg in 50.5 mls @ 202 mls/hr 08/19/25 03:30 08/19/25 04:38 Phenergan IV 09/18/25 03:29 Infused Q6H PRN Infusion Nausea And Vomiting Topiramate 50 mg 08/19/25 09:00 08/19/25 09:19 Topiramate 50 Mg Tab PO 09/18/25 08:59 50 mg BID RAMA Administration NPO Date Last Intake of Fluids: 08/19/25 Time Last Intake of Fluids: 08:00 Last Intake of Fluids Comment: sip with meds Date Last Intake of Solids: 08/17/25 Time Last Intake of Solids: 00:01 Past Medical History Medical History (Updated 08/19/25 @ 11:48 by Yun Collazo, RN) Hypertension Depression Anxiety Exercise / Class Metabolic Activity II 4-5 Yardwork/Stairs/Walk up hill Past Surgical History Surgical History (Updated 08/19/25 @ 11:48 by Yun Collazo RN) History of tubal ligation History of wisdom tooth extraction Past Anesthesia History No Hx of Anesthesia Complications and No Family Hx of Anesthesia Complications History of PONV No Hx of PONV and No Hx of Motion Sickness Social History Smoking Status: Never smoker Hx Alcohol Use: No Hx Substance Use: No Physical Exam Vital Signs Last Vital Signs Temp 37.0 C 08/19/25 11:45 Pulse 90 08/19/25 11:45 Resp 18 08/19/25 11:45 BP 131/73 08/19/25 11:45 Pulse Ox 96 08/19/25 11:45 O2 Del Method Room Air 08/19/25 11:45 Constitutional no acute distress ENMT Mouth: + small oral opening; no dentition abnormality Thyromental Distance: > or= 3.5 Finger Breadths Mallampati Class: III Neck normal visual inspection Respiratory normal respiratory effort; no respiratory distress Auscultation: lungs clear to auscultation bilaterally Cardiovascular Rate/Rhythm: regular rate and regular rhythm Heart Sounds: no murmur Musculoskeletal Spine: normal cervical ROM Psychiatric Orientation: alert and oriented x 3 Testing Laboratory Results 08/19/25 07:52 08/19/25 07:52 PT 10.1 Seconds (9.0-12.0) 08/18/25 Unknown INR 1.0 (0.9-1.1) 08/18/25 Unknown Hemoglobin A1c 5.3 % (4.5-5.6) 08/19/25 07:52 Urine Color [place] 08/18/25 Unknown Urine Appearance Cloudy (Clear) A 08/18/25 Unknown Urine pH 5.0 (4.5-7.5) 08/18/25 Unknown Ur Specific [place] 1.024 (1.000-1.030) 08/18/25 Unknown Urine Protein 1+ (Negative) H 08/18/25 Unknown Urine Glucose (UA) Negative (Negative) 08/18/25 Unknown Urine Ketones Trace (Negative) H 08/18/25 Unknown Urine Nitrite Positive (Negative) A 08/18/25 Unknown Ur Leukocyte Esterase 1+ (Negative) H 08/18/25 Unknown Urine WBC (Auto) 0-5 /hpf (0-5) 08/18/25 Unknown Urine RBC (Auto) 3-5 /hpf (0-2) H 08/18/25 Unknown U Hyaline Cast (Auto) 0-2 /lpf (0-2) 08/18/25 Unknown U Epithel Cells (Auto) >20 /hpf (0-2) H 08/18/25 Unknown Urine Bacteria (Auto) 2+ (None Seen) H 08/18/25 Unknown Urine Test Negative (Negative) 08/18/25 Unknown 08/18/25 Unknown Urine Test Negative Day of Procedure Evaluation. Date of Surgery August 19, 2025 Height/Weight Height: 5 ft 4 in Weight: 82.5 kg Vital Signs Last Vital Signs Temp 37.0 C 08/19/25 11:45 Pulse 90 08/19/25 11:45 Resp 18 08/19/25 11:45 BP 131/73 08/19/25 11:45 Pulse Ox 96 08/19/25 11:45 O2 Del Method Room Air 08/19/25 11:45 Allergies Allergy/AdvReac Type Severity Reaction Status Date / Time No Known Allergies Allergy Verified 08/19/25 11:48 Medications Home Medications Medication Instructions Recorded Confirmed Last Taken fluoxetine 20 mg capsule (Prozac) 20 mg PO DAILY 08/18/25 08/18/25 Unknown topiramate 50 mg tablet 50 mg PO BID 08/18/25 08/18/25 Unknown Active Medications Generic Name Dose Route Start Last Admin Trade Name Freq PRN Reason Stop Dose Admin Amlodipine Besylate 2.5 mg 08/19/25 04:15 08/19/25 04:26 Amlodipine Besylate 5 Mg Tab PO 09/18/25 04:14 Not Given QAM RAMA Fluoxetine HCl 20 mg 08/19/25 09:00 08/19/25 09:20 Fluoxetine Hcl 20 Mg Cap PO 09/18/25 08:59 20 mg DAILY RAMA Administration Hydromorphone HCl 0.5 mg 08/19/25 03:30 08/19/25 08:24 Hydromorphone Inj 0.5 Mg/0.5 Ml Syr IV 09/02/25 03:29 0.5 mg Q4H PRN Administration Pain Potassium Chloride 20 meq/ 1,010 mls @ 80 mls/hr 08/19/25 03:30 08/19/25 04:37 Lactated Ringer's IV 08/20/25 03:29 80 mls/hr .[id number] RAMA Administration Promethazine HCl 12.5 mg in 50.5 mls @ 202 mls/hr 08/19/25 03:30 08/19/25 04:38 Phenergan IV 09/18/25 03:29 Infused Q6H PRN Infusion Nausea And Vomiting Topiramate 50 mg 08/19/25 09:00 08/19/25 09:19 Topiramate 50 Mg Tab PO 09/18/25 08:59 50 mg BID RAMA Administration Past Anesthesia History No Hx of Anesthesia Complications and No Family Hx of Anesthesia Complications History of PONV No Hx of PONV and No Hx of Motion Sickness NPO Date Last Intake of Fluids: 08/19/25 Time Last Intake of Fluids: 08:00 Last Intake of Fluids Comment: sip with meds Date Last Intake of Solids: 08/17/25 Time Last Intake of Solids: 00:01 HCG & FBG Results 08/18/25 Unknown Urine Test Negative Home Medications Home Medications Medication Instructions Recorded Confirmed Last Taken fluoxetine 20 mg capsule (Prozac) 20 mg PO DAILY 08/18/25 08/18/25 Unknown topiramate 50 mg tablet 50 mg PO BID 08/18/25 08/18/25 Unknown Active Medications Generic Name Dose Route Start Last Admin Trade Name Freq PRN Reason Stop Dose Admin Amlodipine Besylate 2.5 mg 08/19/25 04:15 08/19/25 04:26 Amlodipine Besylate 5 Mg Tab PO 09/18/25 04:14 Not Given QAM RAMA Fluoxetine HCl 20 mg 08/19/25 09:00 08/19/25 09:20 Fluoxetine Hcl 20 Mg Cap PO 09/18/25 08:59 20 mg DAILY RAMA Administration Hydromorphone HCl 0.5 mg 08/19/25 03:30 08/19/25 08:24 Hydromorphone Inj 0.5 Mg/0.5 Ml Syr IV 09/02/25 03:29 0.5 mg Q4H PRN Administration Pain Potassium Chloride 20 meq/ 1,010 mls @ 80 mls/hr 08/19/25 03:30 08/19/25 04:37 Lactated Ringer's IV 08/20/25 03:29 80 mls/hr .[id number] RAMA Administration Promethazine HCl 12.5 mg in 50.5 mls @ 202 mls/hr 08/19/25 03:30 08/19/25 04:38 Phenergan IV 09/18/25 03:29 Infused Q6H PRN Infusion Nausea And Vomiting Topiramate 50 mg 08/19/25 09:00 08/19/25 09:19 Topiramate 50 Mg Tab PO 09/18/25 08:59 50 mg BID RAMA Administration Exercise / Class Metabolic Activity Metabolic Activity: II 4-5 Yardwork/Stairs/Walk up hill Physical Exam Constitutional: no acute distress Mouth: + small oral opening; no dentition abnormality Thyromental Distance: > or= 3.5 Finger Breadths Mallampati Class: III Neck: + visual inspection normal Respiratory: + respiratory effort normal and + clear to auscultation bilaterally; no respiratory distress Cardiovascular: + regular rate and + regular rhythm; no murmur Musculoskeletal: no limited cervical ROM Psychiatric: + alert and + oriented x 3 ASA ASA2 Proposed Anesthesia Proposed Anesthesia: MAC Risk / Benefits Reviewed With: PT / POA / Parent / Guardian, Accepts Plan and Informed Consent Obtained
[2025-08-19] MEDS ORDERED: LIDOCAINE 2% 2 ML VIAL/AMP(20MG/ML) INFIL ONE (12:22)
[2025-08-19] MEDS ORDERED: ATROPINE SULFATE 0.1 MG/ML 10ML SYR IV PRN (12:22)
[2025-08-19] MEDS ORDERED: ONDANSETRON INJ 2 MG/ML 2 ML VIAL ONE (12:22)
[2025-08-19] MEDS ORDERED: MIDAZOLAM HCL 1 MG/ML 2ML VIAL ONE (12:22)
[2025-08-19] MEDS ORDERED: PROPOFOL IV EMULSION 10 MG/ML 20 ML VIAL IV ONE (12:22)
[2025-08-19] MEDS ORDERED: DEXAMETHASONE SOD INJ 4 MG/ML VIAL ONE ×2 (12:22)
[2025-08-19] MEDS ORDERED: PROMETHAZINE HCL 6.25 MG in SODIUM CHLORIDE 0.9% 50 ML IV PRN (12:22)
--- NOTE | 2025-08-19 12:50 | Operative Report ---
[facility] Post Operative Report Pre & Post Diagnosis Right ureteral calculus Operation Date: 08/19/25 07:50 <No data on this case meets the specified criteria> Right ureteral calculus I identified the patient and participated in the time-out.: Yes Procedure Cystoscopy, right retrograde pyelogram, right ureteral stent placement Operation Date: 08/19/25 07:50 <No data on this case meets the specified criteria> Surgeon Elliott Maldonado MD Room Attendant None Estimated Blood Loss 0 Findings See Below Moderate right hydronephrosis. Stent in appropriate position. Specimens None Drains 6 [place] by 24 cm right ureteral stent Anesthesia Type MAC Complications none Indications 45-year-old female with a right distal obstructing ureteral calculus and UA concerning for infection Description of Procedure After informed consent was obtained, the patient was transported operative suite. MAC anesthesia was induced. The patient was placed in dorsolithotomy position prepped and draped in a sterile fashion. They received preoperative ceftriaxone for antibiotic prophylaxis. An appropriate surgical timeout was performed. A 22 [place] rigid scope was inserted per urethra into the bladder. Bhatia cystoscopy revealed no stones or lesions. I turned my attention the right ureteral orifice and intubated this with a 5 [place] open-ended catheter. A right retrograde pyelogram was shot which showed moderate hydronephrosis. A sensor wire was advanced into the kidney and confirmed fluoroscopically. A 6 [place] by 24 cm right ureteral stent was deployed with a good proximal coil in the renal pelvis and a good distal coil noted in the bladder, confirmed fluoroscopically and under direct visualization, respectively. The bladder was emptied and the scope was removed. This concluded the end of the case. All counts were correct at the end of the case. I was present, scrubbed, and actively participated for the entirety of the procedure. I attest to the content of the Intraoperative Record and any orders documented therein. Any exceptions are noted below.
--- NOTE | 2025-08-19 13:13 | Fluoroscopy Report ---
FL retrograde includes kub CLINICAL HISTORY: RT RETROGRADE STENT COMPARISON STUDY: CT same day FLUOROSCOPY TIME: 5.8 seconds FLUOROSCOPY IMAGES: 1 EXPOSURE DOSE: 1.58 mGy FINDINGS: Proximal portion of a right ureteral stent appears to be in satisfactory positioning. Mild dilation of the right renal collecting system. Distal portion of the stent was not imaged. IMPRESSION: Fluoroscopic assistance as above. ACT 112: Negative or not required by law. Electronically signed by: Andrew Simpson M.D. 08/19/2025 1:12 PM
--- NOTE | 2025-08-19 14:28 | Anesthesiology Progress Note ---
Date of Service August 19, 2025 Anesthesia Post Procedure Vital Signs Vital Signs: Temp Pulse Pulse Pulse Resp BP BP 08/19/25 14:15 80 14 137/86 08/19/25 14:00 76 12 134/79 08/19/25 13:45 80 14 120/85 08/19/25 13:30 80 15 127/77 08/19/25 13:20 36.4 C L 76 15 130/78 08/19/25 13:10 83 16 122/65 08/19/25 13:00 79 14 118/73 08/19/25 12:54 36.3 C L 87 15 117/68 08/19/25 11:45 37.0 C 90 18 131/73 08/19/25 07:43 74 20 116/68 08/19/25 07:20 72 08/19/25 05:43 78 20 108/80 08/19/25 05:00 72 20 108/80 08/19/25 04:21 69 13 123/84 08/19/25 03:35 71 08/19/25 03:30 71 15 08/19/25 03:09 80 13 08/19/25 02:48 82 15 182/118 H 08/19/25 02:14 80 12 141/96 H 08/19/25 01:21 77 15 155/98 H 08/19/25 00:08 72 19 117/77 08/18/25 23:18 78 14 140/94 08/18/25 22:27 74 12 138/91 08/18/25 22:22 76 20 08/18/25 21:56 36.5 C 84 18 152/91 H Pulse Ox O2 Del Method O2 Flow Rate 08/19/25 14:15 92 Room Air 08/19/25 14:00 92 Room Air 08/19/25 13:45 92 Room Air 08/19/25 13:30 91 Room Air 08/19/25 13:20 97 Room Air 08/19/25 13:10 97 Oxymask 5 08/19/25 13:00 99 Oxymask 5 08/19/25 12:54 96 Oxymask 5 08/19/25 11:45 96 Room Air 08/19/25 07:43 97 Room Air 08/19/25 07:20 08/19/25 05:43 96 Room Air 08/19/25 05:00 97 Room Air 08/19/25 04:21 94 08/19/25 03:35 08/19/25 03:30 92 08/19/25 03:09 94 08/19/25 02:48 93 08/19/25 02:14 95 Room Air 08/19/25 01:21 93 08/19/25 00:08 92 Room Air 08/18/25 23:18 94 Room Air 08/18/25 22:27 94 Room Air 08/18/25 22:22 96 Room Air 08/18/25 21:56 96 Room Air Pain Intensity Abdomen: Pain Intensity: 4 Transfer of Care Handoff Completed per policy Notes Mental Status: alert / awake / arousable and participated in evaluation Nausea / Vomiting: adequately controlled Pain: adequately controlled Airway Patency, RR, SpO2: stable & adequate BP & HR: stable & adequate Hydration State: stable & adequate Anesthetic Complications: no major complications apparent and Pt Satisfied with anesthetic care
[2025-08-19 16:38] VITALS: RESP 16
[2025-08-19] MEDS: CALCIUM CARBONATE 500 MG CHEWABLE TAB PO STA (23:31)
[2025-08-19] MEDS: cefTRIAXone SODIUM 2,000 MG/50 ML BAG IV SCH (23:48)
[2025-08-20 00:43] VITALS: O2SAT 95
[2025-08-20 07:01] LABS: Hematocrit (blood only) 32.3 % (37.0-47.0); Hemoglobin 10.5 g/dl (12.0-16.0); Mean Corpuscular Hemoglobin 30.7 pg (25.0-34.0); Mean Corpuscular Volume 94.4 fL (80.0-100.0); Platelet Count 263 K/uL (130-400); RDW Standard Deviation 45.5 fL (36.4-46.3); Red Blood Count 3.42 M/uL (4.20-5.40); White Blood Count 13.34 K/ul (4.8-10.8)
[2025-08-20 07:22] VITALS: BP 145/78; PULSE 73; TEMP 98.1
[2025-08-20 07:46] LABS: Anion Gap 5.0 (3-11); Blood Urea Nitrogen 17.0 mg/dl (6-23); Calcium 9.1 mg/dl (8.6-10.3); Carbon Dioxide 25.0 mmol/L (21-32); Chloride 113.0 mmol/L (98-107); Creatinine Clr Calc Pharmacy 76.1 ml/min; Glucose 101.0 mg/dl (70-99(Fasting)); Magnesium 2.0 mg/dl (1.7-2.4); Potassium 3.8 mmol/L (3.5-5.1); Sodium 143.0 mmol/L (136-145)
[2025-08-20] MEDS: TAMSULOSIN HCL 0.4 MG CAP PO SCH (09:03)
--- NOTE | 2025-08-20 09:05 | Urology Progress Note ---
Date of Service August 20, 2025 Assessment & Plan (1) Complicated UTI (urinary tract infection): (2) Right ureteral stone: Plan 45-year-old female who is status post cystoscopy and right ureteral stent placement for obstructing stone on 08/19/2025. Pain significantly improved. Follow-up cultures and treat accordingly Patient is stable for discharge home from a urologic perspective. If no culture data back, would suggest sending home on minimum 3 days of [facility] to sign off. A message has been sent to schedule outpatient follow-up to get stone treatment set up Recommend sending home with narcotics, Flomax and oxybutynin 5 mg quick release 3 times daily for any stent discomfort Admission and Anticipated Discharge Date Admission Date: August 19, 2025 Subjective Patient is status post cystoscopy and right ureteral stent placement on 08/19/2025. Afebrile with stable vitals. Labs today show white count of 13.3 down from 15.3, creatinine down from 1.28-0.96. Cultures are still pending. Patient reports subjectively feeling much better. Physical Exam Physical Exam: General: Alert and oriented, no acute distress HEENT: Normocephalic, mucous membranes moist Pulmonary: Nonlabored respirations Abdomen: Nondistended Extremities: Moves all 4 spontaneously Neuro: No gross deficits Skin: Warm, dry, no rashes noted Results & Data Vital Signs (Past 12 Hours) Vital Signs Temp Pulse Resp BP Pulse Ox O2 Del Method 08/20/25 07:20 36.7 C 73 16 145/78 H 95 Room Air 08/19/25 23:45 36.8 C 72 16 154/83 H 95 Room Air PG Care Time/CCT Total # of Minutes Spent Total Time Spent with Patient: Total time spent is greater than 50% in coordination of care (as documented) at patient's floor/unit and/or counseling patient: Coding Level of Care Code 01058 SUB INP/OBS CARE 2/35MIN Diagnoses Complicated UTI (urinary tract infection) N39.0 Right ureteral stone N20.1
[2025-08-20] MEDS: ACETAMINOPHEN 325 MG TAB PO PRN (10:03)
--- NOTE | 2025-08-20 11:43 | Hospitalist Progress Note ---
Date of Service August 20, 2025 Assessment & Plan (1) Complicated UTI (urinary tract infection): Plan: Complicated urinary tract infection Obstructive uropathy Acute kidney injury Right renal cyst --CT ABD:Right vesico-ureteric junction calculus causing mild hydroureteronephrosis and perinephric fat stranding. Non-obstructing bilateral nephrolithiasis. Right renal cortical cyst. --S/P Cystoscopy, right retrograde pyelogram, right ureteral stent placement by Dr. Maldonado on 08/19/2025 -- Blood cultures: No growth to date -- Urine culture: Preliminary showing pinpoint growth Continue IV Rocephin>> transition to oral antibiotics to complete the course Continue IV fluids, Flomax Advance diet as tolerated Appreciate urology input Plan to discharge home today Hypokalemia Replace and monitor QTc prolongation Avoid QTc prolonging meds Hypertension BP elevated on presentation likely situational Continue amlodipine 5 mg daily Monitor blood pressure Also started on Flomax Hyperglycemia HbA1c 5.3 Mood disorder Migraine Continue Prozac Also on topiramate for migraine Advised to discuss with PCP for for alternative medications to manage migraine given nephrolithiasis CODE STATUS Full code Disposition Home Admission and Anticipated Discharge Date Admission Date: August 19, 2025 Subjective Patient is seen and examined at bedside States having some stent discomfort Dysuria improving Denies any chest pain, dyspnea, hematuria, dizziness Family at bedside Plan to discharge home today Review of Systems Review of Systems: All systems reviewed & are unremarkable except as noted in Subjective Physical Exam Physical Exam: Physical Exam: Vitals signs as noted above General Appearance:Moderately built and nourished, no apparent distress Head: normocephalic, Atraumatic Eyes: normal inspection, EOMI Neck: supple, Trachea midline Respiratory/Chest: Normal breath sounds, CTA, No accessory muscle use Cardiovascular: S1, S2, No murmur Abdomen/GI:Soft, mild RLQ tender, Bowel sounds present Extremities/Musculoskeletal:normal inspection, no edema Neurologic/Psych:AAOX3, grossly no focal neurological deficits Skin: normal color, warm Results & Data Results & Data Vital Signs (Past 12 Hours) Vital Signs Temp Pulse Resp BP Pulse Ox O2 Del Method 08/20/25 07:20 36.7 C 73 16 145/78 H 95 Room Air 08/19/25 23:45 36.8 C 72 16 154/83 H 95 Room Air Laboratory Results Short CBC 08/20/25 Range/Units 06:35 WBC 13.34 H (4.8-10.8) K/ul Hgb 10.5 L (12.0-16.0) g/dl Hct 32.3 L (37.0-47.0) % Plt Count 263 (130-400) K/uL [facility] 08/20/25 06:35 Sodium 143 Potassium 3.8 Chloride 113 H Carbon Dioxide 25 BUN 17 Creatinine 0.96 D Glucose 101 H Calcium 9.1
--- NOTE | 2025-08-20 13:40 | Discharge Summary ---
Date of Service August 20, 2025 Admission HPI Per Admitting Provider History obtained from patient and records. Medical history significant for borderline hypertension, urolithiasis, mood disorder. 2 days ago, patient noted achy right flank pain reminiscent of kidney stone attack associated with dysuria symptoms. No hematuria, no fever, no chills. Patient consulted [facility] ER. Patient told she had small obstructing kidney stone on the right. Patient given Flomax at the ER. Patient discharged on Vicodin and Pyridium course. Patient instructed to go to [facility] if with worsening pain due to lack of urology services at [facility] as per patient account. Worsening pain yesterday associated with nausea, fever, chills. Poor appetite. Patient denies chest pain, SOB, headache symptoms. IV ceftriaxone administered at the ER. Highest SBP of 180 documented at the ER. Medical History as above Surgical History : BTL Family History : Heart disease Personal/Social history : Non-smoker, no EtOH intake, travel agency managerprecision assembly inspector Exam Per Admitting Provider GENERAL: Slightly uncomfortable, obese, no respiratory distress SKIN: Normal color, warm HEENT: [place]well palpebral conjunctivae, no ptosis, dry buccal mucosa NECK : Supple, no tenderness CHEST : CTA, no tenderness HEART : RRR, no obvious murmurs ABDOMEN: Some distention, right flank tenderness EXTREMITIES : Minimal LE swelling without LE tenderness, palpable pulses, no other conspicuous deformities noted NEUROLOGIC : Coherent, no facial asymmetry, no other gross focality Principal Diagnosis Complicated urinary tract infection Obstructive uropathy Acute kidney injury Right renal cyst Discharge Data Allergies Allergy/AdvReac Type Severity Reaction Status Date / Time No Known Allergies Allergy Verified 08/19/25 11:48 Consultations 08/19/25 02:56 Consult Urology Routine 08/19/25 03:00 ED Decision to Admit Stat Procedures Performed Operation Date: 08/19/25 12:29 Actual Procedures p Cystoscopy, Right Retrograde Pyelogram, Right Stent Placement(Right) - Elliott Maldonado MD Ordered Studies Laboratory Results WBC 13.34 K/ul (4.8-10.8) H 08/20/25 06:35 RBC 3.42 M/uL (4.20-5.40) L 08/20/25 06:35 Hgb 10.5 g/dl (12.0-16.0) L 08/20/25 06:35 Hct 32.3 % (37.0-47.0) L 08/20/25 06:35 MCV 94.4 fL (80.0-100.0) 08/20/25 06:35 MCH 30.7 pg (25.0-34.0) 08/20/25 06:35 MCHC 32.5 g/dL (32.0-36.0) 08/20/25 06:35 RDW Std Deviation 45.5 fL (36.4-46.3) 08/20/25 06:35 RDW Coeff of Mala 13.2 % (11.5-14.5) 08/20/25 06:35 Plt Count 263 K/uL (130-400) 08/20/25 06:35 MPV 9.8 fL (9.4-12.4) 08/20/25 06:35 Immature Gran % (Auto) 0.3 % 08/19/25 07:52 Neut % (Auto) 81.7 % 08/19/25 07:52 Lymph % (Auto) 11.9 % 08/19/25 07:52 [place] % (Auto) 5.0 % 08/19/25 07:52 Eos % (Auto) 0.6 % 08/19/25 07:52 Baso % (Auto) 0.5 % 08/19/25 07:52 Neut # (Auto) 12.50 K/uL (1.40-6.50) H 08/19/25 07:52 Lymph # (Auto) 1.82 K/uL (1.20-3.40) 08/19/25 07:52 [place] # (Auto) 0.77 K/uL (0.11-0.59) H 08/19/25 07:52 Eos # (Auto) 0.09 K/uL (0.00-0.50) 08/19/25 07:52 Baso # (Auto) 0.07 K/uL (0.00-0.20) 08/19/25 07:52 Immature Gran # (Auto) 0.05 K/uL (0.01-0.20) 08/19/25 07:52 PT 10.1 Seconds (9.0-12.0) 08/18/25 Unknown INR 1.0 (0.9-1.1) 08/18/25 Unknown Sodium 143 mmol/L (136-145) 08/20/25 06:35 Potassium 3.8 mmol/L (3.5-5.1) 08/20/25 06:35 Chloride 113 mmol/L (98-107) H 08/20/25 06:35 Carbon Dioxide 25 mmol/L (21-32) 08/20/25 06:35 Anion Gap 5 (3-11) 08/20/25 06:35 BUN 17 mg/dl (6-23) 08/20/25 06:35 Creatinine 0.96 mg/dl (0.6-1.2) D 08/20/25 06:35 Est Cr Clr Drug Dosing 76.1 ml/min 08/20/25 06:35 eGFR 73.90 08/20/25 06:35 BUN/Creatinine Ratio 17.7 (10-20) 08/20/25 06:35 Glucose 101 mg/dl (70-99(Fasting)) H 08/20/25 06:35 Estimat Average Glucose 105 mg/dl 08/19/25 07:52 Hemoglobin A1c 5.3 % (4.5-5.6) 08/19/25 07:52 Calcium 9.1 mg/dl (8.6-10.3) 08/20/25 06:35 Magnesium 2.0 mg/dl (1.7-2.4) 08/20/25 06:35 Total Bilirubin 0.4 mg/dl (0.2-1.0) 08/18/25 Unknown AST 23 U/L (13-39) 08/18/25 Unknown ALT 41 U/L (7-52) 08/18/25 Unknown Alkaline Phosphatase 75 U/L (34-104) 08/18/25 Unknown Total Protein 7.2 gm/dl (6.0-8.3) 08/18/25 Unknown Albumin 3.9 gm/dl (3.4-5.0) 08/18/25 Unknown Globulin 3.3 gm/dl (2.5-4.0) 08/18/25 Unknown Albumin/Globulin Ratio 1.2 (0.9-2) 08/18/25 Unknown Lipase 12 U/L (11-82) 08/18/25 Unknown Urine Color [place] 08/18/25 Unknown Urine Appearance Cloudy (Clear) A 08/18/25 Unknown Urine pH 5.0 (4.5-7.5) 08/18/25 Unknown Ur Specific [place] 1.024 (1.000-1.030) 08/18/25 Unknown Urine Protein 1+ (Negative) H 08/18/25 Unknown Urine Glucose (UA) Negative (Negative) 08/18/25 Unknown Urine Ketones Trace (Negative) H 08/18/25 Unknown Urine Blood Negative (Negative) 08/18/25 Unknown Urine Nitrite Positive (Negative) A 08/18/25 Unknown Urine Bilirubin 1+ (Negative) H 08/18/25 Unknown Urine Urobilinogen Negative (Negative) 08/18/25 Unknown Ur Leukocyte Esterase 1+ (Negative) H 08/18/25 Unknown Urine WBC (Auto) 0-5 /hpf (0-5) 08/18/25 Unknown Urine RBC (Auto) 3-5 /hpf (0-2) H 08/18/25 Unknown U Hyaline Cast (Auto) 0-2 /lpf (0-2) 08/18/25 Unknown U Epithel Cells (Auto) >20 /hpf (0-2) H 08/18/25 Unknown Urine Bacteria (Auto) 2+ (None Seen) H 08/18/25 Unknown Urine Test Negative (Negative) 08/18/25 Unknown Urine Comment 08/18/25 Unknown Impressions Abdomen/Pelvis CT 08/19/25 00:21 EXAM: CT abd pelvis wo con CLINICAL HISTORY: R flank pain TECHNIQUE: Contiguous axial images were obtained from the level of the diaphragm to the pubic symphysis without intravenous or oral contrast. Coronal and sagittal reconstructions were likewise performed and are included to increase the sensitivity for detecting clinically relevant pathology. The CT scan was performed according to ALARA (as low as reasonably achievable) principles. COMPARISON: None FINDINGS: The visualized lung bases are clear. Evaluation of the abdominal and pelvic visceral organs is limited without intravenous contrast. The unenhanced liver, spleen, pancreas, and adrenal glands are grossly unremarkable. The gallbladder is present. The kidneys are normal in size and attenuation. A right vesico-ureteric junction calculus measuring 2.9 mm (HU ~440) is causing mild hydroureteronephrosis and perinephric fat stranding. Multiple 2-3 mm calculi are seen in all pole calyces of the right kidney. Two 2 mm calculi are present at the lower pole of the left kidney. A cortical cyst measuring 1.5 x 1.2 cm is seen at the upper pole of the right kidney. The urinary bladder is normal in contour. The pelvic viscera are grossly unremarkable. No adenopathy or fluid collections are seen. There is no evidence of focal or diffuse bowel wall thickening or evidence of bowel obstruction. The appendix is visualized in the right lower quadrant and appears within normal limits. The aorta is normal in caliber. No aggressive-appearing osseous lesions are identified. IMPRESSION: 1. Right vesico-ureteric junction calculus causing mild hydroureteronephrosis and perinephric fat stranding. 2. Non-obstructing bilateral nephrolithiasis. 3. Right renal cortical cyst. Electronically signed by Jose Earl 08-19-2025 02:48 AM Retrograde Pyelogram 08/19/25 10:07 FL retrograde includes kub CLINICAL HISTORY: RT RETROGRADE STENT COMPARISON STUDY: CT same day FLUOROSCOPY TIME: 5.8 seconds FLUOROSCOPY IMAGES: 1 EXPOSURE DOSE: 1.58 mGy FINDINGS: Proximal portion of a right ureteral stent appears to be in satisfactory positioning. Mild dilation of the right renal collecting system. Distal portion of the stent was not imaged. IMPRESSION: Fluoroscopic assistance as above. ACT 112: Negative or not required by law. Electronically signed by: Andrew Simpson M.D. 08/19/2025 1:12 PM Hospital Course (1) Complicated UTI (urinary tract infection): Complicated urinary tract infection Obstructive uropathy Acute kidney injury Right renal cyst --CT ABD:Right vesico-ureteric junction calculus causing mild hydroureteronephrosis and perinephric fat stranding. Non-obstructing bilateral nephrolithiasis. Right renal cortical cyst. --S/P Cystoscopy, right retrograde pyelogram, right ureteral stent placement by Dr. Maldonado on 08/19/2025 -- Blood cultures: No growth to date -- Urine culture: Preliminary showing pinpoint growth Continue IV Rocephin>> transition to oral antibiotics to complete the course Continue IV fluids, Flomax Advance diet as tolerated Appreciate urology input Plan to discharge home today Hypokalemia Replace and monitor QTc prolongation Avoid QTc prolonging meds Hypertension BP elevated on presentation likely situational Continue amlodipine 5 mg daily Monitor blood pressure Also started on Flomax Hyperglycemia HbA1c 5.3 Mood disorder Migraine Continue Prozac Also on topiramate for migraine Advised to discuss with PCP for for alternative medications to manage migraine given nephrolithiasis CODE STATUS Full code Disposition Home Total Time Total Time Spent Total Time Spent (In Minutes): 52 minutes Discharge Plan Discharge Items Patient Disposition: Home - Self-Care Reason For Visit: COMP UTI Discharge Diagnosis: Complicated urinary tract infection Obstructive uropathy Acute kidney injury Right renal cyst Condition on Discharge: Fair Activity: Per Instructions section Exercise/Sports: Gradually increase as tolerated Non-emergency contact: Primary Care Provider and Urologist Call non-emergency contact if: you have any medication questions, your symptoms worsen, your pain is concerning for you and you have a fever Follow-up/Referrals: Tristen Demarco, [Primary Care Provider] - Diet: Heart Healthy Addtl Attending Provider Instructions: -- Follow-up with your primary care physician in 1 week -- Follow-up with your urologist Dr. Maldonado as recommended -- Your blood, urine culture pending at the time of discharge. Follow-up with your physician for results. --Complete the antibiotic course cefuroxime as prescribed. If your cultures suggest resistance to cefuroxime, you may need a different antibiotic to treat your infection. -- Discuss with your physician regarding topiramate likely contributing to kidney stones as recommended. Seek immediate medical attention if your symptoms reoccur or worsen Please review medication list provided on discharge for any medication changes as instructed. Please call if you have any questions or problems. You can reach a [facility] hospitalist on duty at [facility] [address] 24 hours a day by calling [phone] Pending Studies at Discharge: Yes Studies:: Blood, urine cultures Stand-Alone Forms: My [facility], Smoking Cessation Medications and DC Order Prescriptions: New tamsulosin 0.4 mg Capsule 0.4 mg PO QAM Qty: 30 0RF Advanced Probiotic 625 mg (10 billion cell) Capsule 1 cap PO DAILY Qty: 10 0RF cefuroxime axetil 500 mg tablet 500 mg PO BID 7 Days Qty: 14 0RF oxybutynin chloride 5 mg tablet 5 mg PO Q8H PRN (Reason: bladder spasms) Qty: 30 0RF Continued fluoxetine [Prozac] 20 mg Capsule 20 mg PO DAILY topiramate 50 mg Tablet 50 mg PO BID amlodipine 5 mg tablet 5 mg PO DAILY Discharge Orders: Discharge Order (Routine); Ordered 08/20/25 Ordered By: Bird Lundy Admission Data Admit Date/Time: 08/19/25 03:28 Attending Provider: Bird Lundy Admit Provider: Brayan Braden Primary Care Provider: Tristen Demarco Other Providers: Hernan Becker Joseph N. Other Interventions: Discharge Summary Assessment (RN) Last Done: 08/20/25 12:18
[2025-08-21] MEDS ORDERED: ADVANCED PROBIOTIC 625 MG CAPSULE PO SCH (09:00)
== END 2025-08-20 12:48 | disposition home or self-care (01) | DRG 661 ==
LOC: ED 21:53 → INTOOBSV 08-19 03:28 → EDINP 08-19 03:28 → 3N 08-19 14:34